=== PATIENT | female | born 1980 | race Hispanic/Latino ===

== ENCOUNTER 2021-08-13 22:48 | Emergency (ER) | payer OTHER ==
[2021-08-13] MEDS ORDERED: diphenhydrAMINE 50 MG/ML VIAL IV ONE (23:01)
[2021-08-13] MEDS ORDERED: methylPREDNISolone Sod Succinate 125 MG/2 ML INJ IV ONE (23:01)
[2021-08-13] MEDS ORDERED: FAMOTIDINE 20 MG/2 ML INJ IV ONE (23:01)
[2021-08-13] MEDS ORDERED: EPINEPHrine RACEMIC 2.25% 0.5ML NEBU IH ONE (23:01)
--- NOTE | 2021-08-13 23:07 | Emergency Department Report ---
HPI - General Time Seen by Provider: 08/13/21 22:58 - HPI HPI: Room 22 The patient is a 41-year-old female present with chief complaint of allergic reaction. The patient states this evening she used some new coconut lotion after getting out of the shower. Patient states approximately 30 to 45 minutes later she developed erythematous rash which was diffusely pruritic shortness of breath and burning sensation to the skin. The patient drove her self to the emergency department ED Past Medical Hx - Past Medical History Previous Medical History?: No - Surgical History Additional Surgical History: - Family History Family history: no significant - Social History Smoking Status: Never Smoker Substance Use Type: None (Denies illicit drug use) - Medications Home Medications: Home Medications Medication Instructions Recorded Confirmed Last Taken Type EPINEPHrine [Epipen 2-Bert] 0.3 mg IM ONCE PRN #0.6 ml 08/14/21 Unknown Rx Famotidine [Pepcid] 20 mg PO BID #6 tablet 08/14/21 Unknown Rx Prednisone [predniSONE 10 mg 10 mg PO .TAPER #1 08/14/21 Unknown Rx (6-Day Pack, 21 Tabs)] diphenhydrAMINE [Benadryl CAP] 50 mg PO Q6HR #24 capsule 08/14/21 Unknown Rx ED Review of Systems ROS: Stated complaint: ALLERGIC REACTION/ELLEN/RASH/HIVES Other details as noted in HPI Constitutional: no symptoms reported Eyes: denies: eye pain ENT: denies: throat pain Respiratory: shortness of breath Cardiovascular: denies: chest pain Endocrine: no symptoms reported Gastrointestinal: denies: abdominal pain Genitourinary: denies: dysuria Musculoskeletal: denies: back pain Skin: rash, change in color, pruritus Neurological: denies: headache Physical Exam - Physical Exam Physical Exam: GENERAL: The patient is well-developed well-nourished female lying on stretcher appearing to be in moderate discomfort. [] HEENT: Normocephalic. Atraumatic. Extraocular motions are intact. Patient has moist mucous membranes. NECK: Supple. Trachea midline, no stridor CHEST/LUNGS: Clear to auscultation. There is no respiratory distress noted. HEART/CARDIOVASCULAR: Regular. There is tachycardia. There is no gallop rub or murmur. ABDOMEN: Abdomen is soft, nontender. Patient has normal bowel sounds. There is no abdominal distention. SKIN: There is a diffuse erythematous rash that is pruritic in nature. There is no diaphoresis. NEURO: The patient is awake, alert, and oriented. The patient is cooperative. The patient has no focal neurologic deficits. The patient has normal speech. GCS 15 MUSCULOSKELETAL: There is no evidence of acute injury. ED Course - Reevaluation(s) Reevaluation #1: 08/13/21 23:29 Patient states she is improving Reevaluation #2: 08/14/21 01:59 Patient states she feels much improved. ED Medical Decision Making - Differential Diagnosis Acute allergic reaction Critical care attestation.: If time is entered above; I have spent that time in minutes in the direct care of this critically ill patient, excluding procedure time. ED Disposition Clinical Impression: Acute allergic reaction Disposition: HOME / SELF CARE / HOMELESS Is pt being admited?: No Does the pt Need Aspirin: No Condition: Stable Instructions: Hives, Contact Dermatitis, [id number] Additional Instructions: Return to the emergency department should you develop worsening symptoms, inability to tolerate food or liquids, high fever or any other concerns Prescriptions: diphenhydrAMINE [Benadryl CAP] 50 mg PO Q6HR #24 capsule EPINEPHrine [Epipen 2-Bert] 0.3 mg IM ONCE PRN #0.6 ml PRN Reason: Anaphylaxis Famotidine [Pepcid] 20 mg PO BID #6 tablet Prednisone [predniSONE 10 mg (6-Day Pack, 21 Tabs)] 10 mg PO .TAPER #1 Referrals: PAWEL SLATER MD [Staff Physician] - 3-5 Days Time of Disposition: :02
[2021-08-14 00:56] VITALS: BP 122/76
== END 2021-08-14 02:49 | disposition home or self-care (01) ==
LOC: ED 22:48
DX: T78.40XA Allergy, unspecified, initial encounter (principal)
CPT/HCPCS: 94640; 96374; 96375; 99283; J1200; J2930; J3490; 94644

== ENCOUNTER 2021-09-25 20:25 | Emergency (ER) | payer OTHER | END 2021-09-25 20:30 | disposition left against medical advice (07) | LOC: ED 20:25 | DX: T14.8XXA Other injury of unspecified body region, initial encounter (principal); Z53.21 Procedure and treatment not carried out due to patient leaving prior to being seen by health care provider; W54.0XXA Bitten by dog, initial encounter; Y93.89 Activity, other specified; Y92.89 Other specified places as the place of occurrence of the external cause; Y99.8 Other external cause status ==

== ENCOUNTER 2021-09-26 13:33 | Emergency (ER) | payer OTHER ==
[2021-09-26 14:41] VITALS: BP 142/62
--- NOTE | 2021-09-26 15:15 | XRay Report ---
LEFT FOREARM 3 VIEWS INDICATION / CLINICAL INFORMATION: injury COMPARISON: None available. FINDINGS: BONES / JOINT(S): No acute fracture or subluxation. No significant arthritis. SOFT TISSUES: There is soft tissue edema along the radial aspect of the proximal to mid forearm. No r adiodense foreign bodies are seen. ADDITIONAL FINDINGS: None. IMPRESSION: No acute skeletal abnormality. Signer Name: Topher Fermin MD Signed: 09/26/2021 3:08 PM Workstation Name: [id number]
[2021-09-26] MEDS ORDERED: oxyCODONE /ACETAMINOPHEN 5-325MG TAB PO ONE (16:36)
[2021-09-26] MEDS ORDERED: KETOROLAC 10 MG TAB PO ONE (16:36)
[2021-09-26] MEDS ORDERED: AMOXICILLIN/K CLAV 875/125MG TAB PO ONE (16:36)
[2021-09-26] MEDS ORDERED: TETANUS,DIPH,PERTUSS(ACELL) VACCINE 0.5 ML SYRINGE IM ONE (16:36)
--- NOTE | 2021-09-26 16:57 | Emergency Department Report ---
ED Animal Bite HPI - General Chief Complaint: Extremity Injury, Upper Stated Complaint: DOG BITE Time Seen by Provider: 09/26/21 16:12 Source: patient Mode of arrival: Ambulatory Limitations: No Limitations - History of Present Illness Initial Comments: 41-year-old black female with a past medical history of as VT status post ablation presents to the emergency department for evaluation after dog bite. She states that her son's girlfriends dog bit her in her arm yesterday and she has had persistent pain and swelling to the area since then. She states that she is unaware if the dog's shots are up-to-date. Complaint: animal bite -: Sudden, Last night Left: Forearm Animal: dog Animal Control Notified: No Description: household pet, immunizations unknown, appeared well Mechanism: bite Pain Description: constant Severity scale (0 -10): 10 Context: provoked Associated Symptoms: erythema. denies: discharge from wound, bleeding, fever, chills, rash, loss of consciousness - Related Data Patient Tetanus UTD: No Previous Rx's Medication Instructions Recorded Last Taken Type EPINEPHrine [Epipen 2-Bert] 0.3 mg IM ONCE PRN #0.6 ml 08/14/21 Unknown Rx Famotidine [Pepcid] 20 mg PO BID #6 tablet 08/14/21 Unknown Rx Prednisone [predniSONE 10 mg 10 mg PO .TAPER #1 08/14/21 Unknown Rx (6-Day Pack, 21 Tabs)] diphenhydrAMINE [Benadryl CAP] 50 mg PO Q6HR #24 capsule 08/14/21 Unknown Rx Amoxicillin/K Clav Tab [Augmentin 1 tab PO BID 7 Days #14 tab 09/26/21 Unknown Rx 875 mg] Fluconazole 150 mg PO ONCE #1 tab 09/26/21 Unknown Rx Naproxen [Naprosyn] 500 mg PO BID 7 Days #14 tab 09/26/21 Unknown Rx Tramadol HCl/Acetaminophen 1 each PO Q6HR PRN #12 tab 09/26/21 Unknown Rx [Ultracet Tablet] Allergies Allergy/AdvReac Type Severity Reaction Status Date / Time No Known Allergies Allergy Verified 08/13/21 23:17 ED Review of Systems ROS: Stated complaint: DOG BITE Other details as noted in HPI Comment: All other systems reviewed and negative Constitutional: denies: chills, fever Eyes: denies: vision change Respiratory: denies: shortness of breath Cardiovascular: denies: chest pain, palpitations Gastrointestinal: denies: abdominal pain, nausea, vomiting Musculoskeletal: denies: back pain Neurological: denies: headache, weakness ED Past Medical Hx - Past Medical History Additional medical history: SVT with syncope - Surgical History Additional Surgical History: , heart ablation, breast reduction - Social History Smoking Status: Never Smoker - Medications Home Medications: Home Medications Medication Instructions Recorded Confirmed Last Taken Type EPINEPHrine [Epipen 2-Bert] 0.3 mg IM ONCE PRN #0.6 ml 08/14/21 Unknown Rx Famotidine [Pepcid] 20 mg PO BID #6 tablet 08/14/21 Unknown Rx Prednisone [predniSONE 10 mg 10 mg PO .TAPER #1 08/14/21 Unknown Rx (6-Day Pack, 21 Tabs)] diphenhydrAMINE [Benadryl CAP] 50 mg PO Q6HR #24 capsule 08/14/21 Unknown Rx Amoxicillin/K Clav Tab [Augmentin 1 tab PO BID 7 Days #14 tab 09/26/21 Unknown Rx 875 mg] Fluconazole 150 mg PO ONCE #1 tab 09/26/21 Unknown Rx Naproxen [Naprosyn] 500 mg PO BID 7 Days #14 tab 09/26/21 Unknown Rx Tramadol HCl/Acetaminophen 1 each PO Q6HR PRN #12 tab 09/26/21 Unknown Rx [Ultracet Tablet] ED Physical Exam - General Limitations: No Limitations General appearance: alert, in no apparent distress - Head Head exam: Present: atraumatic, normocephalic - Eye Eye exam: Present: normal appearance. Absent: conjunctival injection - Neck Neck exam: Present: normal inspection. Absent: tenderness - Respiratory Respiratory exam: Absent: respiratory distress - Cardiovascular Cardiovascular Exam: Present: regular rate - GI/Abdominal GI/Abdominal exam: Absent: distended - Expanded Upper Extremity Exam Left Forearm Wrist exam: Present: tenderness, swelling, abrasion, ecchymosis, erythema. Absent: normal inspection, deformity, dislocation, tenderness over anatomical snuff box Vascular: Present: normal capillary refill, radial pulse. Absent: vascular compromise, Pallo, pulse deficit radial art - Back Exam Back exam: Present: normal inspection. Absent: vertebral tenderness - Neurological Exam Neurological exam: Present: alert, oriented X3 - Psychiatric Psychiatric exam: Present: normal affect, normal mood - Skin Skin exam: Present: warm, dry, normal color ED Course Vital Signs 09/26/21 09/26/21 14:37 17:41 Temperature 98.9 F Pulse Rate 79 79 Respiratory 18 18 Rate Blood Pressure 142/62 Blood Pressure 142/62 [Left] O2 Sat by Pulse 100 100 Oximetry Critical care attestation.: If time is entered above; I have spent that time in minutes in the direct care of this critically ill patient, excluding procedure time. ED Disposition Clinical Impression: Dog bite Qualifiers: Encounter type: initial encounter Qualified Code(s): W54.0XXA - Bitten by dog, initial encounter Disposition: HOME / SELF CARE / HOMELESS Is pt being admited?: No Does the pt Need Aspirin: No Condition: Stable Instructions: Animal Bite, Adult, [id number] Additional Instructions: Take medications as prescribed. Follow-up with primary care provider if no improvement or worsening symptoms. Prescriptions: Amoxicillin/K Clav Tab [Augmentin 875 mg] 1 tab PO BID 7 Days #14 tab Fluconazole 150 mg PO ONCE #1 tab Naproxen [Naprosyn] 500 mg PO BID 7 Days #14 tab Tramadol HCl/Acetaminophen [Ultracet Tablet] 1 each PO Q6HR PRN #12 tab PRN Reason: Pain , Severe (7-10) Referrals: SHABNAM MON MD [Staff Physician] - 3-5 Days Forms: Work/School Release Form(ED) Time of Disposition: 16:57 ED Medical Decision Making - Radiology Data Radiology results: report reviewed, image reviewed Left forearm x-ray: FINDINGS: BONES / JOINT(S): No acute fracture or subluxation. No significant arthritis. SOFT TISSUES: There is soft tissue edema along the radial aspect of the proximal to mid forearm. No radiodense foreign bodies are seen. ADDITIONAL FINDINGS: None. IMPRESSION: No acute skeletal abnormality. - Medical Decision Making 41-year-old black female with a past medical history of as VT status post ablation presents to the emergency department for evaluation after dog bite. She states that her son's girlfriends dog bit her in her arm yesterday and she has had persistent pain and swelling to the area since then. She states that she is unaware if the dog's shots are up-to-date. Left forearm x-ray without any acute abnormalities noted. Tdap updated. Patient treated with first dose of Augmentin and given Toradol and Percocet for pain. Patient be discharged home with 7-day course of Augmentin along with Toradol along through the use of it for pain. She is advised to take medications as prescribed and follow-up primary care provider if no improvement or worsening symptoms. She verbalizes understanding of and agreement with plan of care.
== END 2021-09-26 17:41 | disposition home or self-care (01) ==
LOC: ED 13:33
DX: S41.152A Open bite of left upper arm, initial encounter (principal); W54.0XXA Bitten by dog, initial encounter; Y93.89 Activity, other specified; Y92.89 Other specified places as the place of occurrence of the external cause; Y99.8 Other external cause status
CPT/HCPCS: 90471; 90715; 99283